=== PATIENT | female | born 1965 | race Caucasian/White ===

== ENCOUNTER 2018-01-05 09:33 | Inpatient (IN) | payer OTHER ==
[~2018-01-05] VITALS: Ht 154.9 cm; Wt 70.3 kg
[2018-01-05] MEDS ORDERED: MONT4TAB9 PO (09:51)
--- NOTE | 2018-01-05 09:51 | NUR ---
DR KAUFMAN AT THE BEDSIDE FOR MSE.
[2018-01-05 10:25] LABS: BASOPHILS # (AUTO) 0.1 K/uL (0.0-8.0); BASOPHILS % (AUTO) 1.5 % (0.0-2.0); CREATININE 0.7 mg/dL (0.6-1.3); EOSINOPHILS # (AUTO) 0.1 K/uL (0.0-0.7); EOSINOPHILS % (AUTO) 0.7 % (0.0-7.0); HEMATOCRIT 38.5 % (31.2-41.9); HEMOGLOBIN 13.2 g/dL (10.9-14.3); LYMPHOCYTES # (AUTO) 1.2 K/uL (20.0-40.0); LYMPHOCYTES % (AUTO) 14.5 % (20.5-51.5); MEAN CORPUSCULAR HEMOGLOBIN 32.9 uug (24.7-32.8); MEAN CORPUSCULAR HGB CONC 34 g/dL (32.3-35.6); MEAN CORPUSCULAR VOLUME 95.5 fL (75.5-95.3); MONOCYTES # (AUTO) 0.5 K/uL (2.0-10.0); MONOCYTES % (AUTO) 5.9 % (0.0-11.0); NEUTROPHILS # (AUTO) 6.4 K/uL (1.8-8.9); NEUTROPHILS % (AUTO) 77.4 % (38.5-71.5); PLATELET COUNT (AUTO) 327 K/uL (179-408); RED BLOOD CELL COUNT(AUTO) 4.03 MIL/uL (3.63-4.92); WHITE BLOOD COUNT (AUTO) 8.3 K/uL (3.8-11.8)
[2018-01-05 10:31] LABS: BILIRUBIN,DIRECT 0.1 mg/dL (0.0-0.2); BILIRUBIN,TOTAL 0.4 mg/dL (0.2-1.0); TOTAL PROTEIN, SERUM 7.4 g/dL (6.4-8.2)
--- NOTE | 2018-01-05 11:01 | NUR ---
pt resting inbed speaking on the phone. Denies chest pain, SOB, abdominal discomfort.
--- NOTE | 2018-01-05 14:20 | NUR ---
4900 units of Heprin bolus to LT AC line given per protocol.
[2018-01-05] MEDS ORDERED: HEPARIN/D5W DRIP 500 ML IV ONE (14:45)
[2018-01-05] MEDS ORDERED: ASPIRIN 81 MG TAB.CHEW ONE (14:45)
[2018-01-05] MEDS ORDERED: ASPIRIN 81 MG TAB.CHEW PO ONE (14:45)
[2018-01-05] MEDS ORDERED: HEPARIN SODIUM,PORCINE 5,000 UNITS/ML VIAL ONE (15:11)
[2018-01-05] MEDS ORDERED: HEPARIN/D5W DRIP 500 ML ONE (15:11)
--- NOTE | 2018-01-05 16:57 | NUR ---
Continue Heprin infusion on transfer to tele floor.
[2018-01-05 17:08] VITALS: BP 128/68
--- NOTE | 2018-01-05 18:00 | NUR ---
Pt is in acute distress. Pt alert and oriented x4. TELE SNR @70's Call light is within reach.
[2018-01-05] MEDS: METOPROLOL TARTRATE 25 MG TABLET PO SCH (18:33)
[2018-01-05] MEDS ORDERED: ALBU1.25 NEB (18:58)
--- NOTE | 2018-01-05 19:00 | NUR ---
RECEIVED PATIENT IN BED ALERT ORIENTED, NO SOB NO CHEST PAIN, RYTHM SINUS RYTHM AT THIS TIME. FAMILY AT BED SIDE, NO S/S OF DISTRESS.
[2018-01-05] MEDS ORDERED: IOHEXOL 350 100 ML INFUS..BTL ONE (19:23)
[2018-01-05] MEDS ORDERED: IV NORMAL SALINE 250 ML IV ONE (19:23)
[2018-01-05] MEDS ORDERED: NORMAL SALINE FLUSH 10 ML DISP.SYRIN ONE (19:23)
[2018-01-05] MEDS ORDERED: SWABABLE VALVE TRANSFER SET EA MC ONE (19:23)
[2018-01-05] MEDS ORDERED: ONDANSETRON 4 MG/2 ML VIAL IV PRN (19:30)
[2018-01-05] MEDS ORDERED: ACETAMINOPHEN 325 MG TABLET PO PRN (19:30)
[2018-01-05] MEDS ORDERED: MORPHINE SULFATE 2 MG/1 ML DISP.SYRIN IV PRN (19:30)
[2018-01-05] MEDS ORDERED: MAGNESIUM HYDROXIDE 30 ML LIQUID UDC PO PRN (19:30)
[2018-01-05] MEDS ORDERED: HEPARIN/D5W DRIP 500 ML IV PRN (20:00)
[2018-01-05] MEDS ORDERED: ALBUTEROL SULFATE 1.25 MG/3 ML NEBU NEB PRN (20:00)
[2018-01-05 20:10] VITALS: BP 128/41
[2018-01-05] MEDS ORDERED: ATORVASTATIN 40 MG TABLET PO SCH (21:00)
[2018-01-05] MEDS ORDERED: DOCUSATE SODIUM 100 MG CAPSULE PO SCH (21:00)
[2018-01-05] MEDS ORDERED: DOCUSATE SODIUM 250 MG CAPSULE PO SCH (21:00)
--- NOTE | 2018-01-05 22:02 | NUR ---
NOTIFY DR. PATEL [employer]IVERS[employer] REGISTRAR, PTT 49, HEPARIN DRIP 1050 UNITS/HR, 21CC/HR NO CHANGE AT THIS TIME, HAS NO NEW ORDER AT THIS TIME. CONT TO MONITOR.
--- NOTE | 2018-01-05 23:00 | NUR ---
PATIENT COMPLAIN OF DULL CHEST PAIN, [employer] VASCULAR SONOGRAPHER ORDERED NITROQUICK FOR PAIN, PATIENT REFUSED MORPHINE IV, PATIENT ALERT ORIENTED, RYTHM SINUS RYTHM ON 64 BEATS PER MINUTES.
[2018-01-05] MEDS: NITROGLYCERIN 0.4 MG/TAB BOTTLE SL PRN ×2 (23:17→23:47)
--- NOTE | 2018-01-05 23:17 | NUR ---
GIVEN NITROQUICK SUBLINGUAL, RYTHM SINUS RYTHM 65 BEATS PER MINUTES. CONT TO MONITOR.
--- NOTE | 2018-01-05 23:42 | NUR ---
RECHECK PATIENT PATIENT STILL HAS DULL ACHES ON CHEST, BUT SAID IT'S LESSER, REFUSED THE NEXT DOSE OF NITROQUICK, CONT TO MONITOR, NO SOB NOTED,
--- NOTE | 2018-01-05 23:47 | NUR ---
RECHECK PATIENT AND PATIENT STATED SHE STILL HAS DULL CHEST PAIN, TOOK THE 2ND DOSE OF NITROQUICK AT THIS TIME, RYTHM, SINUS RYTHM 64 BEATS PER MINUTES, CONT TO MONITOR.
[2018-01-06] MEDS ORDERED: ALBUTEROL SULFATE 1.25 MG/3 ML NEBU NEB SCH
--- NOTE | 2018-01-06 00:12 | NUR ---
RECHECK PATIENT, PATIENT STATED THAT SHE STILL HAS DULL ACHES ON CHEST BUT MUCH LESSER THAN BEFORE. OFFER 3RD DOSE OF NITROQUICK BUT REFUSED, CONT TO MONITOR. RYTHM SINUS RYTHM. 65. CALL LIGHT WITHIN REACH.
[2018-01-06 00:15] VITALS: BP 112/59
[2018-01-06 05:10] VITALS: BP 121/59
[2018-01-06 06:32] LABS: BASOPHILS # (AUTO) 0.1 K/uL (0.0-8.0); BASOPHILS % (AUTO) 1.1 % (0.0-2.0); EOSINOPHILS # (AUTO) 0.2 K/uL (0.0-0.7); EOSINOPHILS % (AUTO) 1.9 % (0.0-7.0); HEMATOCRIT 38.1 % (31.2-41.9); HEMOGLOBIN 12.8 g/dL (10.9-14.3); LYMPHOCYTES # (AUTO) 3.3 K/uL (20.0-40.0); LYMPHOCYTES % (AUTO) 31.3 % (20.5-51.5); MEAN CORPUSCULAR HEMOGLOBIN 32.2 uug (24.7-32.8); MEAN CORPUSCULAR HGB CONC 34 g/dL (32.3-35.6); MEAN CORPUSCULAR VOLUME 96.2 fL (75.5-95.3); MONOCYTES # (AUTO) 0.5 K/uL (2.0-10.0); MONOCYTES % (AUTO) 4.6 % (0.0-11.0); NEUTROPHILS # (AUTO) 6.5 K/uL (1.8-8.9); NEUTROPHILS % (AUTO) 61.1 % (38.5-71.5); PLATELET COUNT (AUTO) 334 K/uL (179-408); RED BLOOD CELL COUNT(AUTO) 3.97 MIL/uL (3.63-4.92); WHITE BLOOD COUNT (AUTO) 10.6 K/uL (3.8-11.8)
--- NOTE | 2018-01-06 06:41 | NUR ---
PATIENT SLEEP ON AND OFF, NO FURTHER COMPLAIN OF CHEST PAIN AT THIS TIME. RYTHM SINUS RYTHM 59, NO SOB, CALL LIGHT WITHIN REACH.
[2018-01-06 06:52] LABS: BILIRUBIN,TOTAL 0.3 mg/dL (0.2-1.0); CREATININE 0.6 mg/dL (0.6-1.3); PHOSPHOROUS 3.6 mg/dL (2.5-4.9); POTASSIUM 3.4 mmol/L (3.5-5.1)
[2018-01-06 07:26] LABS: THYROID STIMULATING HORMONE 3.43 mIU/mL (0.358-3.740)
--- NOTE | 2018-01-06 08:00 | NUR ---
Kept pt NPO status for cardiac cath today at [facility]. Pt is in no acute distress denies any c/o chest pain. Received call from DR so notified pt had x 2 c/o CP last night and elevated troponin of 0.967. Pt on Heparin drip per protocol with 1050 units/hr rate.
[2018-01-06] MEDS: METOPROLOL TARTRATE 25 MG TABLET PO SCH (08:51)
[2018-01-06] MEDS ORDERED: Medication Not On Formulary EA (Montelukast Sodium (Singulair) 4 MG) PO SCH (09:00)
[2018-01-06] MEDS ORDERED: MONTELUKAST SODIUM 10 MG TABLET PO SCH (09:00)
[2018-01-06] MEDS ORDERED: HEPARIN SODIUM,PORCINE 5,000 UNITS/ML VIAL IV PRN (09:30)
[2018-01-06 11:45] VITALS: BP 121/63
--- NOTE | 2018-01-06 12:15 | NUR ---
Report given to sadiq charge nurse same day surgery [facility]. Report given to EMT for vegetable picker. PT is in no acute distress.
[2018-01-06] MEDS ORDERED: POTASSIUM CHLORIDE 20 MEQ TAB.PRT.SR PO ONE (12:45)
--- NOTE | 2018-01-06 12:45 | NUR ---
order for K received but pt has left for [employer].
--- NOTE | 2018-01-06 17:31 | NUR ---
Spoke with Eder LEI from [employer] [facility] regarding patient. Pt is to stay at [facility] and will not comeback to [facility]. Notified central supply technician supervisor nash.
== END 2018-01-06 17:24 | disposition short-term general hospital (02) | DRG 281 ==
LOC: ER 09:33 → TELE 16:43
PROVIDERS: ADMIT Internal Medicine; ATTEND Nurse Practitioner Acute Care
DX: I21.4 Non-ST elevation (NSTEMI) myocardial infarction (principal); J98.11 Atelectasis; J45.909 Unspecified asthma, uncomplicated; F41.9 Anxiety disorder, unspecified; Z90.49 Acquired absence of other specified parts of digestive tract; Z82.49 Family history of ischemic heart disease and other diseases of the circulatory system; I25.10 Atherosclerotic heart disease of native coronary artery without angina pectoris; Z79.899 Other long term (current) drug therapy
CPT/HCPCS: 36415; 70030-TC; 71045; 71275; 83735; 84100; 84443; 85025; 85730; 93005; 93307; A4663; J1644; J3490; J7030; J7050; Q9967